=== PATIENT | female | born 1940 | race Caucasian/White ===

== ENCOUNTER → 2018-06-26 | Outpatient (CLI) | payer OTHER ==
[~2018-06-26] MED LIST: ASPIRIN325; AUGMENTIN 875875 M1 PO; CALCIUM 600 +1 EAC1 PO; FISH OIL 1,0001 EAC5 PO; FLAXSEED OIL1000 MG PO; FOLIC ACID; FUROSEMIDE; GLUCOSAMINE SU500 MG PO; GLUCOTROL5 MG PO; K-DUR 20 MEQ T20 MEQ PO; LOPRESSOR; MULTIVITAMINS; NITROQUICK0.4 MG SL; PRILOSEC 20 MG20 MG PO; ZOCOR40 MG PO
== END ==
LOC: M.RAD 13:00
DX: Z12.31 Encounter for screening mammogram for malignant neoplasm of breast (principal); I12.9 Hypertensive chronic kidney disease with stage 1 through stage 4 chronic kidney disease, or unspecified chronic kidney disease; E11.22 Type 2 diabetes mellitus with diabetic chronic kidney disease; N18.4 Chronic kidney disease, stage 4 (severe); E78.5 Hyperlipidemia, unspecified; J44.9 Chronic obstructive pulmonary disease, unspecified; I25.10 Atherosclerotic heart disease of native coronary artery without angina pectoris

== ENCOUNTER → 2019-07-05 | Outpatient (CLI) | payer OTHER | LOC: M.RAD 13:30 | DX: Z12.31 Encounter for screening mammogram for malignant neoplasm of breast (principal) ==

== ENCOUNTER → 2020-07-15 | Outpatient (CLI) | payer MEDICARE | LOC: M.RAD 07-10 14:00 | PROVIDERS: ATTEND Family Medicine | DX: Z12.31 Encounter for screening mammogram for malignant neoplasm of breast (principal) ==

== ENCOUNTER 2021-09-11 16:43 | Inpatient (IN) | payer OTHER ==
[~2021-09-11] VITALS: Ht 157.5 cm; Wt 54.6 kg
[2021-09-11] MEDS ORDERED: LIPITOR10 MG PO (16:58)
[2021-09-11] MEDS ORDERED: LOVENOX30 MG/0.3 SUBQ (16:59)
[2021-09-11] MEDS ORDERED: MELATONIN3 M1 PO (17:00)
[2021-09-11] MEDS ORDERED: OXYBUTYNIN 5 MG5 M2 PO (17:01)
[2021-09-11] MEDS ORDERED: OXYCODONE HCL 55 MG PO (17:02)
[2021-09-11] MEDS ORDERED: ASPIRIN EC325 M1 PO (17:04)
[2021-09-11] MEDS ORDERED: VITAMIN D325 MC3 PO (17:06)
[2021-09-11] MEDS ORDERED: LOMOTIL 2.5-0.01 TAB PO (17:07)
[2021-09-11] MEDS ORDERED: FUROSEMIDE 40 M40 MG PO (17:08)
[2021-09-11] MEDS ORDERED: TOPROL XL25 MG PO (17:09)
[2021-09-11] MEDS ORDERED: GLUCOSAMINE &1 EACH PO (17:09)
[2021-09-11] MEDS ORDERED: NITROGLYCERIN0.3 M1 SUBLING (17:11)
[2021-09-11] MEDS ORDERED: FISH OIL 1,0001 EAC9 PO (17:12)
[2021-09-11] MEDS ORDERED: KLOR-CON 1010 MEQ PO (17:13)
[2021-09-11] MEDS ORDERED: EAC PO (17:15)
[2021-09-11 20:44] VITALS: BP 150/69
[2021-09-12 06:39] LABS: HEMATOCRIT 32.5 % (37.0-47.0); MCH 31.5 pg (26.0-34.0); MCHC 33.9 g/dL (28.0-37.0); MCV 92.8 fL (80.0-100.0); MPV 6.6 fl. (7.2-11.1); RBC 3.5 mil/uL (4.20-5.00); RDW-CV 14.3 % (10.5-14.5); WBC 7.8 thou/uL (4.0-11.0)
[2021-09-12 06:49] LABS: CALCIUM 8.6 mg/dL (8.5-10.1); CREATININE 1.5 mg/dL (0.6-1.3); POTASSIUM 4.5 mmol/L (3.5-5.1)
[2021-09-12 08:30] VITALS: BP 147/62
--- NOTE | 2021-09-12 17:22 | NUR ---
ALERT AND ORIENTED X4. UP WITH 1 ASSIST, GAIT BELT AND WALKER TO BATHROOM. CONTINENT OF BLADDER. USES PO PAIN MEDICATION TO HELP WITH PAIN. RIGHT HIP DRESSING DRY AND INTACT. USES CALL LIGHT FOR ASSIST. FALL PRECAUTIONS IN PLACE. TAKES PILLS WHOLE WITHOUT DIFFICULTY.
[2021-09-12 19:00] VITALS: BP 137/52
--- NOTE | 2021-09-13 04:44 | NUR ---
ASSUMED PT CARE AT 1930. PT ALERT AND ORIENTED X4, POLITE AND COOPERATIVE WITH CARES. PT SITTING UP IN RECLINER AT SHIFT CHANGE. UP WITH ASSIST OF ONE, GAITBELT AND WALKER TO BATHROOM TO VOID. PRN PAIN MEDICATION AT HS. DRESSING TO RIGHT HIP DRY AND INTACT. USES CALL LIGHT APPROPRIATELY. CALL LIGHT AND FREQUENTLY USED ITEMS IN REACH. BED ALARM ON FOR SAFETY. HOURLY ROUNDING IN PROGRESS, WILL CONTINUE TO MONITOR.
[2021-09-13 07:21] VITALS: BP 139/57
--- NOTE | 2021-09-13 17:18 | NUR ---
PT UP WITH GAIT BELT, WALKER AND STB ASSIST. DENIES NEED FOR PAIN MEDICATION. HAD VISITOR TODAY. CALL LIGHT IN REACH. FALL PRECAUTIONS IN PLACE.
[2021-09-13 19:20] VITALS: BP 152/35
--- NOTE | 2021-09-14 05:12 | NUR ---
ASSUMED CARES AT 1920. ALERT AND ORIENTED. PLEASANT. DRSG TO RIGHT HIP IN PLACE. MIN ASSIST WITH GAIT BELT AND WALKER. UP TO BATHROOM. TYLENOL GIVEN FOR PAIN. SLEPT OFF AND ON. CALL LIGHT IN REACH AND BED ALARM ON.
[2021-09-14 07:35] VITALS: BP 135/55
--- NOTE | 2021-09-14 16:43 | NUR ---
ALERT AND ORIENTED X4. UP WITH STAND BY ASSIST, GAIT BELT AND WALKER TO BATHROOM. DENIES NEED FOR PAIN MEDICATION. DRESSINGS REMAINS DRY AND INTACT OVER RIGHT HIP. TAKES PILLS WTIHOUT DIFFICULTY. CONTINENT OF BOWEL AND BLADDER. USES CALL LIGHT FOR ASSIST. FALL PRECAUTIONS IN PLACE.
[2021-09-14 19:00] VITALS: BP 145/56
--- NOTE | 2021-09-15 05:23 | NUR ---
ASSUMED PT CARE AT 1930. PT ALERT AND ORIENTED X4, POLITE AND COOPERATIVE WITH CARES. PT SITTING UP IN RECLINER AT SHIFT CHANGE. UP WITH MIN ASSIST, GAIT BELT AND WALKER TO BATHROOM TO VOID. PRN PAIN MEDICATIONS GIVEN PER PT REQUEST. DRESSINGS TO RIGHT HIP C/D/I. CALL LIGHT IN REACH, BED ALARM ON FOR SAFETY. HOURLY ROUNDING IN PROGRESS, WILL CONTINUE TO MONITOR.
[2021-09-15 08:00] VITALS: BP 123/64
--- NOTE | 2021-09-15 10:19 | NUR ---
Nutrition: Pt admitted to rehab with Rt hip FX. H/o CKD IV, CAD. She stated she is eating fairly well, 75-100% of meals. She has a menu. She dislikes Ensure supplements. Wt is at usual of 120#. Meds: statin, fish oil, vit D, MVI, lasix. Regular diet ordered. Labs reviewed. Low nutrition risk.
[2021-09-15 19:00] VITALS: BP 148/60
--- NOTE | 2021-09-15 20:45 | NUR ---
SITTING UP IN RECLINER WITH LEGS ELEVATED. 3+ EDEMA NOTED IN RIGHT LEG. PAIN MEDICINE GIVEN FOR COMPLAINT OF RIGHT LEG PAIN. NO REDNESS OR WARMTH IN RIGHT LEG NOTED. RIGHT PEDAL PULSE 1+. CALL LIGHT WITHIN REACH.
--- NOTE | 2021-09-15 21:39 | NUR ---
ALERT AND ORIENTED X4. UP WITH STAND BY ASSIST, GATI BELT AND WALKER. DRESSINGS DRY AND INTACT OVER RIGHT HIP INCISIONS. CONTINENT OF BOWEL AND BLADDER. USES PO PAIN MEDICATON TO HELP WITH PAIN. USES CALL LIGHT FOR ASSIST. FALL PRECAUTIONS IN PLACE.
[2021-09-16 04:39] LABS: HEMATOCRIT 33.6 % (37.0-47.0); HEMOGLOBIN 11.1 gm/dL (12.0-15.0); MCH 30.9 pg (26.0-34.0); MCV 93.6 fL (80.0-100.0); MPV 6.9 fl. (7.2-11.1); RBC 3.59 mil/uL (4.20-5.00); RDW-CV 14.5 % (10.5-14.5); WBC 9.6 thou/uL (4.0-11.0)
--- NOTE | 2021-09-16 04:51 | NUR ---
UP DURING THE NIGHT TO THE BATHROOM TO VOID. PAIN MEDICINE GIVEN AT 2345 WITH RELIEF. HOURLY ROUNDING IN PROGRESS.
[2021-09-16 04:52] LABS: CALCIUM 8.9 mg/dL (8.5-10.1); CREATININE 1.5 mg/dL (0.6-1.3); POTASSIUM 4.5 mmol/L (3.5-5.1)
[2021-09-16 08:00] VITALS: BP 157/48
--- NOTE | 2021-09-16 15:54 | NUR ---
AM ASSESSMENT AND VITAL SIGNS COMPLETED DOCUMENTED. PT PARTICIPATED WITH PT, OT AND ST TODAY. PT IS MAKING GOOD PROGRESS TOWARD DISCHARGE GOALS AND WILL LIKELY DISCHARGE EARLY NEXT WEEK. DRESSING TO RIGHT HIP REMAINS C/D/I. PAIN HAS BEEN WELL CONTROLLED. FALL PRECAUTIONS AND HOURLY ROUNDING CONTINUE.
--- NOTE | 2021-09-16 16:29 | NUR ---
INITAL ASSESSMENT: PATIENT ADMITTED TO THE [facility] ON 09/11/21 WITH A DIAGNOSIS OF RIGHT HIP FRACTURE. PT A&O, PRIOR TO ADMIT PT ACTIVE AND INDEPENDENT WITH ADL'S. PT USED 0 DME PRIOR TO ADMIT, BUT INFORMS THAT SHE OWNS A CANE, AND ALSO A WALKER THAT HER MOTHER USED PRIOR TO PASSING 10 YRS AGO. PT HAS 0 HX OF HH OR SNF. CM ORIENTED THE PT TO THE [facility] UNIT AND PROCESSES, RESIDENTS RIGHT INFO, TEAM CONFRENCE, AND TO THE ROLE OF CM. CM WILL REMAIN AVAILABLE TO ASSIST AND FOLLOW NEEDED.
[2021-09-16 19:00] VITALS: BP 143/54
[2021-09-17 04:28] LABS: ABSOLUTE BASOPHILS 0.1 thou/uL (0.0-0.2); ABSOLUTE EOSINOPHILS 0.3 thou/uL (0.0-0.7); ABSOLUTE LYMPHOCYTES 1.9 thou/uL (0.8-5.3); ABSOLUTE MONOCYTES 1.1 thou/uL (0.0-1.2); ABSOLUTE NEUTROPHILS 5.2 thou/uL (1.6-8.1); BASOPHILS 1.3 %; EOSINOPHILS 3.7 %; HEMATOCRIT 30.4 % (37.0-47.0); HEMOGLOBIN 10.4 gm/dL (12.0-15.0); LYMPHOCYTES 22.3 %; MCH 31.7 pg (26.0-34.0); MCHC 34.1 g/dL (28.0-37.0); MONOCYTES 12.7 %; MPV 6.8 fl. (7.2-11.1); NUCLEATED RBCS 0 /100WBC; PLATELET COUNT* 336 thou/uL (150-400); RBC 3.27 mil/uL (4.20-5.00); RDW-CV 14.4 % (10.5-14.5); WBC 8.6 thou/uL (4.0-11.0)
[2021-09-17 04:43] LABS: CALCIUM 8.6 mg/dL (8.5-10.1); CREATININE 1.6 mg/dL (0.6-1.3); POTASSIUM 4.5 mmol/L (3.5-5.1)
--- NOTE | 2021-09-17 05:49 | NUR ---
ASSUMED CARE AT 1919. PATIENT RESTING IN RECLINER UNTIL ABOUT 1929. UP WITH SBA, GAIT BELT, WALKER. VOIDS PER TOILET. CONTINENT OF BOWEL AND BLADDER. TAKES PILLS WHOLE WITH WATER. MEDICATED FOR PAIN AT HS. SEE JAN. DRESSING C/D/I TO RIGHT HIP. NEEDS HELP GETTING LEG INTO BED. RLE EDEMA CONTINUES. RLE ELEVATED ON PILLOW WITH HEEL OFFLOADED. HOURLY ROUNDS CONTINUE. BED ALARM ON. CALL LITE IN REACH.
[2021-09-17 07:33] VITALS: BP 153/68
--- NOTE | 2021-09-17 16:44 | NUR ---
PT WORKED WITH THERAPIES. UP WITH WALKER, GAIT BELT AND STB ASSIST. PRN PAIN MEDICATION GIVEN PER PT REQUEST. DRESSING TO R HIP C/D/I. CALL LIGHT IN REACH. FALL PRECAUTIONS IN PLACE.
[2021-09-17 19:40] VITALS: BP 166/55
--- NOTE | 2021-09-18 06:02 | NUR ---
ASSUMED CARES AT 1920. ALERT AND ORIENTED. PLEASANT. PAIN MEDS GIVEN FOR RIGHT LEG PAIN. MIN ASSIST WITH GAIT BELT AND WALKER. UP TO BATHROOM. DRSG TO RIGHT HIP REPLACED IT WAS FALLING OFF. PT STATES DID NOT SLEEP WELL DUE TO LEG PAIN. CALL LIGHT IN REACH AND BED ALARM ON.
[2021-09-18 07:06] LABS: ABSOLUTE BASOPHILS 0.1 thou/uL (0.0-0.2); ABSOLUTE EOSINOPHILS 0.3 thou/uL (0.0-0.7); ABSOLUTE LYMPHOCYTES 1.8 thou/uL (0.8-5.3); ABSOLUTE MONOCYTES 0.9 thou/uL (0.0-1.2); ABSOLUTE NEUTROPHILS 4.7 thou/uL (1.6-8.1); BASOPHILS 1.4 %; EOSINOPHILS 3.5 %; HEMATOCRIT 31.2 % (37.0-47.0); HEMOGLOBIN 10.5 gm/dL (12.0-15.0); MCH 31.1 pg (26.0-34.0); MCHC 33.5 g/dL (28.0-37.0); MCV 92.8 fL (80.0-100.0); MONOCYTES 12.1 %; MPV 6.7 fl. (7.2-11.1); NUCLEATED RBCS 0 /100WBC; PLATELET COUNT* 353 thou/uL (150-400); RBC 3.37 mil/uL (4.20-5.00); RDW-CV 14.3 % (10.5-14.5); WBC 7.8 thou/uL (4.0-11.0)
[2021-09-18 07:16] LABS: CALCIUM 8.4 mg/dL (8.5-10.1); CREATININE 1.6 mg/dL (0.6-1.3); POTASSIUM 4.7 mmol/L (3.5-5.1)
[2021-09-18 13:42] VITALS: BP 128/58
[2021-09-18 20:05] VITALS: BP 103/51
[2021-09-19 07:55] VITALS: BP 164/61
--- NOTE | 2021-09-19 18:11 | NUR ---
PT IS UP WITH STANDBY ASST. PT HAD RT HIP FX. PT REFUSED POTASSIUM, FISH OIL AND LASIX THIS AM. PT DID COMPLAIN OF RT LEG PAIN RESOLVED WITH PAIN MED. PT IS RESTING IN CHAIR WATCHING TV WITH CALL LIGHT IN REACH AND FALL PRECAUTIONS IN PLACE.
[2021-09-19 20:00] VITALS: BP 105/57
[2021-09-20 08:01] VITALS: BP 129/65
[2021-09-20 20:00] VITALS: BP 101/54
--- NOTE | 2021-09-21 04:56 | NUR ---
ASSUMED PT CARE AT 1930. PT ALERT AND ORIENTED X4, POLITE AND COOPERATIVE WITH CARES. PT RESTING IN BED AT SHIFT CHANGE. TYLENOL AT HS PER PT REQUEST. PT UP TO BATHROOM TO VOID SEVERAL TIMES OVERNIGHT WITH GAIT BELT, WALKER AND STANDBY ASSIST. STOOL X1. PT ANXIOUS ABOUT GOING HOME, REASSURANCE GIVEN. CALL LIGHT IN REACH, BED ALARM ON FOR SAFETY. HOURLY ROUNDING IN PROGRESS, WILL CONTINUE TO MONITOR.
[2021-09-21 07:10] LABS: ABSOLUTE BASOPHILS 0.1 thou/uL (0.0-0.2); ABSOLUTE EOSINOPHILS 0.3 thou/uL (0.0-0.7); ABSOLUTE LYMPHOCYTES 1.7 thou/uL (0.8-5.3); ABSOLUTE MONOCYTES 0.8 thou/uL (0.0-1.2); ABSOLUTE NEUTROPHILS 4.7 thou/uL (1.6-8.1); BASOPHILS 1.5 %; EOSINOPHILS 3.3 %; LYMPHOCYTES 22.4 %; MCH 31.8 pg (26.0-34.0); MCHC 34.2 g/dL (28.0-37.0); MONOCYTES 10.8 %; MPV 6.4 fl. (7.2-11.1); NUCLEATED RBCS 0 /100WBC; PLATELET COUNT* 368 thou/uL (150-400); RBC 3.45 mil/uL (4.20-5.00); RDW-CV 14.2 % (10.5-14.5); WBC 7.6 thou/uL (4.0-11.0)
[2021-09-21 07:18] LABS: CALCIUM 8.6 mg/dL (8.5-10.1); CREATININE 1.5 mg/dL (0.6-1.3); POTASSIUM 4.3 mmol/L (3.5-5.1)
[2021-09-21 08:00] VITALS: BP 114/61
[2021-09-21 08:30] VITALS: BP 114/61
[2021-09-21] MEDS ORDERED: REQUIP 1 MG TABL1 M1 PO (09:48)
[2021-09-21] MEDS ORDERED: ASPIRIN EC325 M1 PO (09:48)
[2021-09-21 11:27] VITALS: BP 114/61
[2021-09-21 15:02] VITALS: BP 114/61
--- NOTE | 2021-09-21 16:36 | NUR ---
PATIENT AND FAMILY VERBALIZED UNDERSTANDING OF DISCHARGE INSTRUCTIONS. DENIED NEED FOR PAIN MEDICATION AT THIS TIME. DRESSINGS DRY AND INTACT OVER RIGHT HIP INCISIONS X2. UP WITH STAND BY ASSIST GAIT BELT AND WALKER WITHOUT DIFFICULTY. PATIENT DISCHARGED VIA W/C IN NO ACUTE DISTRESS. RX X2 GIVEN TO PATIENT WITH INFORMATION.
--- NOTE | 2021-09-21 16:38 | NUR ---
PATIENT INSTRUCTED TO CHECK WITH ORTHOPEDIC DR REGARDING DRESSING CHANGES.
== END 2021-09-21 16:15 | disposition home or self-care (01) | DRG 536 ==
LOC: M.REH 16:43
PROVIDERS: Internal Medicine; ADMIT Physical Medicine & Rehabilitation; ATTEND Physical Medicine & Rehabilitation
DX: S72.001A Fracture of unspecified part of neck of right femur, initial encounter for closed fracture (principal); N18.4 Chronic kidney disease, stage 4 (severe); I25.10 Atherosclerotic heart disease of native coronary artery without angina pectoris; I50.9 Heart failure, unspecified; Z79.82 Long term (current) use of aspirin; G25.81 Restless legs syndrome; Z79.899 Other long term (current) drug therapy; Z95.5 Presence of coronary angioplasty implant and graft; W18.39XA Other fall on same level, initial encounter; Y93.89 Activity, other specified; Y92.89 Other specified places as the place of occurrence of the external cause; Y99.8 Other external cause status